=== PATIENT | female | born 1985 | race Caucasian/White ===

== ENCOUNTER 2019-04-09 15:10 | Emergency (ER) | payer MEDICAID ==
[~2019-04-09] VITALS: Ht 157.5 cm; Wt 77.1 kg
[2019-04-09 15:10] VITALS: BP_SYST 112
--- NOTE | 2019-04-09 16:10 | NUR ---
pPatient to ER bed h1 to gown for evaluation. Side rails up.
--- NOTE | 2019-04-09 16:12 | NUR ---
Pt AAOx4 ambulated into ED c/o intermittent cough and pain upon cough x ~ 1 week. Denies n/v/d. Skin pink dry and warm, breathing even and unlabored. No other injuries/complaints per pt/noted. Will continue to monitor.
--- NOTE | 2019-04-09 16:18 | NUR ---
ER Dr. Deras at bedside examining patient.
--- NOTE | 2019-04-09 17:07 | NUR ---
Patient given written and verbal discharge instructions and verbalizes understanding. ER MD Deras discussed with patient the results and treatment provided. Patient in stable condition. ID arm band removed. Rx of Anastacio Steven given. Patient educated on pain management and to follow up with PMD. Pain Scale 0. Opportunity for questions provided and answered. Medication side effect fact sheet provided.
[2019-04-09 17:08] VITALS: BP_SYST 112
== END 2019-04-09 17:07 | disposition home or self-care (01) ==
LOC: SED 15:10
DX: J06.9 Acute upper respiratory infection, unspecified (principal)
CPT/HCPCS: 71045; 81025; 99283

== ENCOUNTER 2019-10-03 18:34 | Emergency (ER) | payer MEDICAID, SELFPAY ==
[~2019-10-03] VITALS: Ht 180.3 cm; Wt 50.3 kg
[2019-10-03 19:23] VITALS: BP_SYST 113; BP_SYST 133
[2019-10-03] MEDS ORDERED: ONDANSETRON 4 MG ODT TAB PO ONE (21:30)
[2019-10-03 22:20] LABS: BASOPHILS % (AUTO) 0.2 % (0.0-2.0); EOSINOPHILS # (AUTO) 0.1 K/uL (0.0-0.4); EOSINOPHILS % (AUTO) 0.7 % (0.0-4.0); HEMATOCRIT 40.6 % (36-48); LYMPHOCYTES # (AUTO) 0.7 K/uL (1.0-5.5); LYMPHOCYTES % (AUTO) 7.1 % (20.5-51.5); MEAN CORPUSCULAR HEMOGLOBIN 32 pg (27-31); MEAN CORPUSCULAR HGB CONC 34 % (32-36); MEAN CORPUSCULAR VOLUME 92 fL (79.0-98.0); MONOCYTES # (AUTO) 0.4 K/uL (0.0-1.0); MONOCYTES % (AUTO) 3.7 % (1.7-9.3); NEUTROPHILS # (AUTO) 8.9 K/uL (1.8-7.7); NEUTROPHILS % (AUTO) 88.3 % (40.0-70.0); PLATELET COUNT (AUTO) 288 K/uL (130-430); RED BLOOD CELL COUNT(AUTO) 4.41 MIL/uL (4.2-6.2); WHITE BLOOD COUNT (AUTO) 10.1 K/uL (4.8-10.8)
[2019-10-03] MEDS ORDERED: KETOROLAC TROMETHAMINE 30 MG VIAL IVP ONE (22:45)
[2019-10-04 00:04] LABS: ALBUMIN 3.6 g/dL (3.4-4.8); CALCIUM 8.5 mg/dL (8.4-11.0); CREATININE 0.69 mg/dL (0.55-1.30); POTASSIUM 3.5 mmol/L (3.5-5.1)
[2019-10-04 01:00] VITALS: BP_SYST 113
== END 2019-10-04 01:00 | disposition home or self-care (01) ==
LOC: SED 18:34
DX: B34.9 Viral infection, unspecified (principal); Z20.828 Contact with and (suspected) exposure to other viral communicable diseases
CPT/HCPCS: 80053; 85025; 86710; 99283; C9803; J1885; Q0162; U0003